=== PATIENT | male | born 1970 | race Caucasian/White ===

== ENCOUNTER 2023-11-17 05:29 | Inpatient (IN) ==
[2023-11-17] MEDS: SODIUM CHLORIDE 0.9% 1,000 ML IV ONE (05:54)
[2023-11-17] MEDS: ONDANSETRON INJ 2 MG/ML 2 ML VIAL IV STA (05:54)
[2023-11-17] MEDS: KETOROLAC 30 MG/ML VIAL IV ONE (05:54)
[2023-11-17 06:16] LABS: Basophils # (auto) 0.05 K/uL (0.00-0.20); Basophils % (auto) 0.5 %; Eosinophils # (auto) 0.29 K/uL (0.00-0.50); Eosinophils % (auto) 3.2 %; Hematocrit (blood only) 43.6 % (42.0-52.0); Hemoglobin 14.8 g/dl (14.0-18.0); Immature Granulocytes # (auto) 0.04 K/uL (0.01-0.20); Immature Granulocytes % (auto) 0.4 %; Lymphocytes # (auto) 2.51 K/uL (1.20-3.40); Lymphocytes % (auto) 27.5 %; Mean Corpuscular Hemoglobin 30.1 pg (25.0-34.0); Mean Corpuscular Hgb Conc 33.9 g/dL (32.0-36.0); Mean Corpuscular Volume 88.8 fL (80.0-100.0); Mean Platelet Volume 9.7 fL (9.4-12.4); Monocytes # (auto) 0.65 K/uL (0.11-0.59); Monocytes % (auto) 7.1 %; Neutrophils # (auto) 5.58 K/uL (1.40-6.50); Neutrophils % (auto) 61.3 %; Platelet Count 255 K/uL (130-400); RDW Coefficient of Variation 11.8 % (11.5-14.5); RDW Standard Deviation 37.3 fL (36.4-46.3); Red Blood Count 4.91 M/uL (4.70-6.10); White Blood Count 9.12 K/ul (4.8-10.8)
[2023-11-17] MEDS: fentaNYL citrate PF 100 MCG/2 ML VIAL IV STA (06:18)
--- NOTE | 2023-11-17 06:31 | Emergency Department Note ---
Impression & Plan Bilateral ureteral calculi, Renal colic on left side, Hydronephrosis, Nausea & vomiting ED Provider Note NAME: CHELITA LARA AGE: 53 SEX: M : 1970 ARRIVES VIA: Walk-In INFORMANT: Patient, triage note ED PROVIDER(S): Dillon Barone MD CHIEF COMPLAINT: Left-sided flank and abdominal pain, nausea vomiting MEDICAL DECISION MAKING: Patient presented due to concern for left-sided flank pain. Pain is improved after receiving Toradol fentanyl and Zofran IV along with IV fluids. Patient has a normal white count H&H and platelet count with normal kidney function prerenal azotemia. Mild elevation in blood glucose at 190. LFTs unremarkable with normal lipase. CT abdomen pelvis was performed without contrast. Left- sided UVJ stone noted. Patient is also noted to have right-sided obstructing kidney stones. Patient was not informed of the findings. I did speak with the on-call urologist MARIO ALBERTO Muller under Dr. Chance. They did discuss taking the patient to the OR for possible stent and/or stone extraction. Patient was taken to the OR. I did message the hospitalist service in conjunction with urology in the event the patient did require admission post procedure. I did touch base with Dr. Parker. Discussion w/ other healthcare providers: MARIO ALBERTO Muller with Dr. Chance urology Dr. [facility] inpatient medicine service Prior /Outside records reviewed: None Differential diagnosis: Renal colic, UTI, pyelonephritis, appendicitis, diverticulitis, strain, sprain, fracture among others were considered. Diagnostics, as interpreted by me: ECG: None Cardiac monitoring: An order was placed for continuous cardiac monitoring. The monitor shows a rate of 52 with sinus rhythm. Patient was placed on pulse oximetry Medical decision rules: None Imaging studies: I informally interpreted the patient's CT abdomen pelvis which does show left- sided UVJ stone with formal report to follow. HPI: Patient presents due to concern for left-sided flank pain when he got up this morning around 5:00. Patient states that it was dull and nonradiating. It does cause him to have associated nausea and dry heaves but no active vomiting. Patient does relate that he had a similar episode about 1 month prior after he was leaving work but it dissipated shortly thereafter. Patient denies any chest pains or shortness of breath no cough or fever. The patient did not take anything for his pain prior to arrival. PAST MEDICAL HISTORY: No pertinent past medical history PAST SURGICAL HISTORY: No pertinent past surgical history SOCIAL HISTORY: Employed. Speaks Welsh. Denies alcohol tobacco or drug use. HOME MEDICATIONS: See Below ALLERGIES: See Below VITALS: See Below PHYSICAL EXAMINATION: GENERAL: NAD, non-toxic. EYE EXAM: Normal conjunctiva. PERRL, no anisocoria and EOM's grossly intact w/o pain. OROPHARYNX: Moist mucus membranes, grossly normal dentition. NECK: Trachea midline, no stridor. LUNGS: Clear to auscultation. Normal chest wall mechanics. HEART: NSR, no MRG. ABDOMEN: Abdomen soft, non-tender, no masses, no rebound or guarding. BACK: No CVA TTP. SKIN: No rashes and no bruising. UPPER EXTREMITIES: Upper extremities are grossly normal. LOWER EXTREMITIES: Grossly normal, no edema. NEURO EXAM: A&O x3, cranial nerves II-XII grossly intact, normal speech, moves all 4 extremities. Past Med/Surg History Problem List (Updated 11/17/23 @ 08:00 by Dillon Barone MD) Nausea & vomiting (Acute) Hydronephrosis (Acute) Renal colic on left side (Acute) Bilateral ureteral calculi (Acute) Social History Smoking Status: Never smoker Preferred Language: Welsh Feels Safe at Home: Yes Results & Data (ED) Vital Signs Vital Signs - 24 hr 11/17/23 05:38 11/17/23 05:40 11/17/23 05:55 Temperature 36.5 C 36.5 C Temperature Source Oral Oral Pulse Rate 70 78 Pulse Rate [Finger] 71 Pulse Rhythm Regular Pulse Rhythm [Finger] Regular Pulse Strength [Finger] Normal Respiratory Rate 16 16 16 Respiratory Effort / Characteristics Non-Labored Non-Labored Spontaneous Respiratory Depth Normal Normal Respiratory Pattern Regular Regular Blood Pressure 163/102 H Blood Pressure [Left Arm] 163/102 H Blood Pressure Mean 122 Blood Pressure Mean [Left Arm] 122 Pulse Oximetry 96 97 97 Oxygen Delivery Method Room Air Room Air Room Air Sepsis Recent Fever Within 48 Hours No Sepsis New/Unexplained Change in Mental Status No Sepsis Action Taken by Nursing No Action Required 11/17/23 06:13 11/17/23 06:46 11/17/23 07:41 Temperature Temperature Source Pulse Rate 47 L Pulse Rate [Finger] 46 L 51 L Pulse Rhythm Pulse Rhythm [Finger] Regular Pulse Strength [Finger] Normal Respiratory Rate 16 18 Respiratory Effort / Characteristics Non-Labored Spontaneous Non-Labored Respiratory Depth Normal Normal Respiratory Pattern Regular Regular Blood Pressure Blood Pressure [Left Arm] 150/96 H 157/108 H Blood Pressure Mean Blood Pressure Mean [Left Arm] 114 124 Pulse Oximetry 96 97 Oxygen Delivery Method Room Air Room Air Sepsis Recent Fever Within 48 Hours Sepsis New/Unexplained Change in Mental Status Sepsis Action Taken by Alf Medications Current Medication List: was personally reviewed by me Laboratory Data Attestation: I reviewed the patient's lab results. 11/17/23 05:50 11/17/23 05:50 Lab Results 11/17/23 Range/Units 05:50 WBC 9.12 (4.8-10.8) K/ul RBC 4.91 (4.70-6.10) M/uL Hgb 14.8 (14.0-18.0) g/dl Hct 43.6 (42.0-52.0) % MCV 88.8 (80.0-100.0) fL MCH 30.1 (25.0-34.0) pg MCHC 33.9 (32.0-36.0) g/dL RDW Std Deviation 37.3 (36.4-46.3) fL RDW Coeff of Fredis 11.8 (11.5-14.5) % Plt Count 255 (130-400) K/uL MPV 9.7 (9.4-12.4) fL Immature Gran % (Auto) 0.4 % Neut % (Auto) 61.3 % Lymph % (Auto) 27.5 % [place] % (Auto) 7.1 % Eos % (Auto) 3.2 % Baso % (Auto) 0.5 % Neut # (Auto) 5.58 (1.40-6.50) K/uL Lymph # (Auto) 2.51 (1.20-3.40) K/uL [place] # (Auto) 0.65 H (0.11-0.59) K/uL Eos # (Auto) 0.29 (0.00-0.50) K/uL Baso # (Auto) 0.05 (0.00-0.20) K/uL Immature Gran # (Auto) 0.04 (0.01-0.20) K/uL Sodium 139 (136-145) mmol/L Potassium 3.7 (3.5-5.1) mmol/L Chloride 107 (98-107) mmol/L Carbon Dioxide 24 (21-32) mmol/L Anion Gap 8 (3-11) BUN 29 H (6-23) mg/dl Creatinine 1.39 (0.6-1.4) mg/dl Est Cr Clr Drug Dosing 73.0 ml/min Est GFR ( Amer) 66.6 ml/min Est GFR (Non-Af Amer) 57.5 ml/min BUN/Creatinine Ratio 20.9 H (10-20) Glucose 190 H (70-99(Fasting)) mg/dl Lactate 1.8 (0.4-2.0) mmol/L Calcium 9.7 (8.6-10.3) mg/dl Total Bilirubin 0.6 (0.2-1.0) mg/dl AST 27 (13-39) U/L ALT 23 (7-52) U/L Alkaline Phosphatase 50 (34-104) U/L Total Protein 7.1 (6.0-8.3) gm/dl Albumin 4.4 (3.4-5.0) gm/dl Globulin 2.7 (2.5-4.0) gm/dl Albumin/Globulin Ratio 1.6 (0.9-2) Lipase 22 (11-82) U/L Administered Medications Discontinued Medications Fentanyl Citrate (Fentanyl Citrate Pf 100 Mcg/2 Ml Vial) 50 mcg IV NOW STA Stop: 11/17/23 06:11 Last Admin: 11/17/23 06:18 Dose: 50 mcg Documented By: SUDHA Sodium Chloride (Nss) 1,000 mls @ 999 mls/hr IV .Q1H1M ONE Stop: 11/17/23 06:41 Last Infusion: 11/17/23 07:52 Dose: Infused Documented By: Admin: 11/17/23 05:54 Dose: 999 mls/hr Documented By: SUDHA Ketorolac Tromethamine (Ketorolac 30 Mg/Ml Vial) 30 mg IV NOW ONE Stop: 11/17/23 05:42 Last Admin: 11/17/23 05:54 Dose: 30 mg Documented By: SUDHA Ondansetron HCl (Ondansetron Inj 2 Mg/Ml 2 Ml Vial) 4 mg IV NOW STA Stop: 11/17/23 05:42 Last Admin: 11/17/23 05:54 Dose: 4 mg Documented By: SUDHA Imaging Data Radiologist's Impression: Abdomen/Pelvis CT 11/17/23 05:30 CT SCAN OF THE ABDOMEN AND PELVIS WITHOUT IV CONTRAST CLINICAL HISTORY: Left flank pain COMPARISON STUDY: No priors. TECHNIQUE: CT scan of the abdomen and pelvis is performed from the lung bases to the proximal femora. Images are reviewed in the axial, sagittal, and coronal planes. IV contrast was not administered for this examination. A dose lowering technique was utilized adhering to the principles of ALARA. CT DOSE: 1514.43 mGy.cm FINDINGS: Lung bases: The heart is top normal in size and without pericardial effusion. The lung bases are clear noting dependent atelectasis. There is a small hiatal hernia. Liver: The unenhanced liver is normal in size, contour, and attenuation. There is no intrahepatic biliary ductal dilatation. Gallbladder: Unremarkable. Spleen: Normal in size and attenuation. Pancreas: Unremarkable. Adrenal glands: Unremarkable. Kidneys: The unenhanced kidneys are normal in size. There is a 3 mm obstructing calculus at the left vesicoureteral junction seen on image #324. This causes mild left hydroureteronephrosis. There is a 4 mm obstructing calculus just above the right vesicoureteral junction seen on image #322, as well as a 4 mm obstructing calculus at the right ureteropelvic junction seen on image #168. This causes [id number] hydronephrosis on the right. There are 2 additional nonobstructing right renal calculi which measure up to 3 mm. An additional 5 mm nonobstructing calculus is seen in the left lower pole. There is no evidence of contour deforming renal mass lesion. Perinephric stranding is seen on the left. Abdominal vasculature: The abdominal aorta is normal in course and caliber. Bowel: There is no bowel obstruction. The appendix is well-visualized and normal. Peritoneum: There is no intraperitoneal free air or abdominal ascites. There is a fat-containing umbilical hernia. Lymphadenopathy: None. Pelvic viscera: The bladder, prostate, and seminal vesicles are normal as visualized. Skeletal structures: No lytic or blastic lesions are seen. IMPRESSION: 1. There is a 3 mm obstructing calculus at the left vesicoureteral junction. This causes mild left hydroureteronephrosis. 2. There is a 4 mm obstructing calculus just above the right vesicoureteral junction and a 4 mm obstructing calculus at the right ureteropelvic junction. These because [id number] hydronephrosis on the right. 3. Additional nonobstructing calculi are seen in both kidneys. 4. Additional findings as above. ACT 112: Negative or not required by law. Electronically signed by: Cody Swanson M.D. 11/17/2023 6:52 AM Discharge Plan Visit Data Chief Complaint: Kidney Stone ED Provider: Dillon Barone Discharge Problem: Bilateral ureteral calculi, Renal colic on left side, Hydronephrosis, Nausea & vomiting Forms Stand Alone Forms: [facility] Referrals Referrals: PCP,NO [Primary Care Provider] - Discharge Problem: Hydronephrosis Qualifiers: Hydronephrosis type: with ureteral calculous obstruction Qualified Code(s): N 13.2 - Hydronephrosis with renal and ureteral calculous obstruction Nausea & vomiting Qualifiers: Vomiting type: unspecified Qualified Code(s): R11.2 - Nausea with vomiting, unspecified
[2023-11-17 06:36] LABS: Albumin Globulin Ratio 1.6 (0.9-2); Albumin Level 4.4 gm/dl (3.4-5.0); BUN Creatinine Ratio 20.9 (10-20); Bilirubin,Total 0.6 mg/dl (0.2-1.0); Calcium 9.7 mg/dl (8.6-10.3); Est GFR (African American) 66.6 ml/min; Est GFR (Non-African American) 57.5 ml/min; Globulin 2.7 gm/dl (2.5-4.0); Potassium 3.7 mmol/L (3.5-5.1); Total Protein 7.1 gm/dl (6.0-8.3)
--- NOTE | 2023-11-17 06:54 | CT Scan Report ---
CT SCAN OF THE ABDOMEN AND PELVIS WITHOUT IV CONTRAST CLINICAL HISTORY: Left flank pain COMPARISON STUDY: No priors. TECHNIQUE: CT scan of the abdomen and pelvis is performed from the lung bases to the proximal femora. Images are reviewed in the axial, sagittal, and coronal planes. IV contrast was not administered for this examination. A dose lowering technique was utilized adhering to the principles of ALARA. CT DOSE: 1514.43 mGy.cm FINDINGS: Lung bases: The heart is top normal in size and without pericardial effusion. The lung bases are rajeev r noting dependent atelectasis. There is a small hiatal hernia. Liver: The unenhanced liver is normal in size, contour, and attenuation. There is no intrahepatic mauricio iary ductal dilatation. Gallbladder: Unremarkable. Spleen: Normal in size and attenuation. Pancreas: Unremarkable. Adrenal glands: Unremarkable. Kidneys: The unenhanced kidneys are normal in size. There is a 3 mm obstructing calculus at the left vesicoureteral junction seen on image #324. This causes mild left hydroureteronephrosis. There is a 4 mm obstructing calculus just above the right vesicoureteral junction seen on image #322, as well as a 4 mm obstructing calculus at the right ureteropelvic junction seen on image #168. This causes mild- to-moderate hydronephrosis on the right. There are 2 additional nonobstructing right renal calculi wh ich measure up to 3 mm. An additional 5 mm nonobstructing calculus is seen in the left lower pole. Th ere is no evidence of contour deforming renal mass lesion. Perinephric stranding is seen on the left. Abdominal vasculature: The abdominal aorta is normal in course and caliber. Bowel: There is no bowel obstruction. The appendix is well-visualized and normal. Peritoneum: There is no intraperitoneal free air or abdominal ascites. There is a fat-containing umbi lical hernia. Lymphadenopathy: None. Pelvic viscera: The bladder, prostate, and seminal vesicles are normal as visualized. Skeletal structures: No lytic or blastic lesions are seen. IMPRESSION: 1. There is a 3 mm obstructing calculus at the left vesicoureteral junction. This causes mild left hy droureteronephrosis. 2. There is a 4 mm obstructing calculus just above the right vesicoureteral junction and a 4 mm obstr ucting calculus at the right ureteropelvic junction. These because [id number] hydronephrosis on the right. 3. Additional nonobstructing calculi are seen in both kidneys. 4. Additional findings as above. ACT 112: Negative or not required by law. Electronically signed by: Cody Swanson M.D. 11/17/2023 6:52 AM
--- NOTE | 2023-11-17 07:39 | Urology Consultation ---
Date of Consultation November 17, 2023 Assessment & Plan (1) Bilateral ureteral calculi: 53 yo/M presented to the emergency department today for evaluation of left flank pain. CT imaging demonstrated bilateral obstructing ureteral stones. Patient is afebrile Labs reviewedcreatinine 1.39, WBC 9.12, hemoglobin 14.8 He has not been able to provide urine sample since arrival CT imaging reviewed and discussed with patient Discussed risks and concerns with bilateral obstructing ureteral stones Discussed surgical intervention with ureteral stent placement today, he is agreeable Ureteral stents were discussed in detail Proceed to OR today for cystoscopy and bilateral ureteral stent placement Risks and benefits of procedure to be reviewed with patient by Dr. Chance Keep NPO for procedure Will cover with preoperative antibiotic See attending note for further details on plan of care Supervising Physician Co-Signing Physician Notes Reviewed imaging and spoke with patient. Recommended bilateral stents given bilateral obstruction. Recommended that we observe him for postobstructive diuresis afterwards. Risk and benefits discussed. Consent signed. Ancef to the OR. History of Present Illness Reason for Consultation: B/L obstructing stones Requesting Physician: Dr. Barone History of Present Illness This is a 53-year-old male who presented to the emergency department today for evaluation of left flank pain, nausea and dry heaves. On arrival, he was afebrile, hypertensive but otherwise stable vitals. Workup in the emergency department included CT abdomen and pelvis without contrast. CT imaging independently reviewed and notable for a 3 mm obstructing calculus at the left UVJ with mild left hydroureteronephrosis. There is also a 4 mm obstructing calculus just above the right UVJ and a 4 mm obstructing calculus at the right UPJ with resulting mild to moderate hydronephrosis. Additional nonobstructing bilateral renal calculi. Lab work reviewed and creatinine 1.39, WBC 9.12, hemoglobin 14.8. No urinalysis at time of visit. He was treated with IV fluids, fentanyl, ondansetron and ketorolac in the emergency department. Patient seen and examined in the emergency department. He is awake and resting in litter. He reports history of kidney stone 20+ years ago. No prior surgical intervention for stones. He reports left flank pain that started suddenly this morning as well as nausea and dry heaves. Pain improved since arrival. No nausea or vomiting at present. He voided earlier this morning. Denies dysuria or hematuria. Has not voided since arrival. Last ate/drank yesterday evening. Patient History Social History Smoking Status: Never smoker Preferred Language: Filipino Feels Safe at Home: Yes Review of Systems Review of Systems: All systems reviewed & are unremarkable except as noted in HPI & below Physical Exam Constitutional: well developed and well nourished; no acute distress Eyes: no scleral abnormality Respiratory: normal respiratory effort; no respiratory distress and no labored breathing Gastrointestinal (Abdomen): Inspection/Auscultation: abdomen normal to inspection Musculoskeletal: Head/Neck/Chest: normocephalic Neurologic: moves all extremities and awake Psychiatric: Orientation: alert and oriented x 3 Genitourinary: no CVA tenderness Results & Data Vital Signs (Past 12 Hours) Vital Signs Temp Pulse Pulse Resp BP BP Pulse Ox 11/17/23 06:46 46 L 16 150/96 H 96 11/17/23 06:13 47 L 11/17/23 05:55 78 16 97 11/17/23 05:40 36.5 C 71 16 163/102 H 97 11/17/23 05:38 36.5 C 70 16 163/102 H 96 O2 Del Method 11/17/23 06:46 Room Air 11/17/23 06:13 11/17/23 05:55 Room Air 11/17/23 05:40 Room Air 11/17/23 05:38 Room Air PG Care Time/CCT Total # of Minutes Spent Total Time Spent with Patient: Total time spent is greater than 50% in coordination of care (as documented) at patient's floor/unit and/or counseling patient: Coding Level of Care Code 22681 IN/OBS CONSULT LVL 4,60M Diagnoses Bilateral ureteral calculi N20.1
[2023-11-17] MEDS ORDERED: PROPOFOL IV EMULSION 10 MG/ML 20 ML VIAL IV ONE ×3 (08:27→08:56)
[2023-11-17] MEDS ORDERED: LIDOCAINE 2% 2 ML VIAL/AMP(20MG/ML) INFIL ONE (08:27)
[2023-11-17] MEDS ORDERED: DEXAMETHASONE SOD INJ 4 MG/ML VIAL ONE ×2 (08:27→08:59)
[2023-11-17] MEDS ORDERED: MIDAZOLAM HCL 1 MG/ML 2ML VIAL ONE (08:28)
[2023-11-17] MEDS ORDERED: fentaNYL citrate PF 100 MCG/2 ML VIAL ONE (08:28)
[2023-11-17] MEDS: ceFAZolin 3000MG 3,000 MG/72.5 ML BAG IV SCH (08:41)
--- NOTE | 2023-11-17 08:41 | Anesthesiology Consultation ---
Date of Service November 17, 2023 Assessment & Plan Chart Review Chart Review: Acceptable Risk for Surgery and Patient NOT seen in Pre Admission Testing Consults Requested none ASA ASA2 Proposed Anesthesia Anesthesia Type: MAC Risk / Benefits Reviewed With: PT / POA / Parent / Guardian, Accepts Plan and Informed Consent Obtained History Surgery Operation Date: 11/17/23 11:20 Proposed Procedures p Cystoscopy, Bilateral Stent Placement - Hari Chance MD Height/Weight Height: 5 ft 7 in Weight: 110.8 kg Allergies Allergy/AdvReac Type Severity Reaction Status Date / Time No Known Allergies Allergy Unverified 11/17/23 08:27 NPO Date Last Intake of Fluids: 11/16/23 Time Last Intake of Fluids: 19:30 Date Last Intake of Solids: 11/16/23 Time Last Intake of Solids: 19:30 Past Anesthesia History No Hx of Anesthesia Complications and No Family Hx of Anesthesia Complications History of PONV No Hx of PONV and No Hx of Motion Sickness Social History Smoking Status: Never smoker Hx Alcohol Use: No Hx Substance Use: No Review of Systems ROS Unobtainable: All systems reviewed & are unremarkable except as noted in HPI & below Physical Exam Vital Signs Last Vital Signs Temp 36.3 C L 11/17/23 08:19 Pulse 77 11/17/23 08:19 Resp 18 11/17/23 08:19 BP 161/100 H 11/17/23 08:19 Pulse Ox 97 11/17/23 08:19 O2 Del Method Room Air 11/17/23 08:19 ENMT Mouth: no TMJ abnormality Thyromental Distance: > or= 3.5 Finger Breadths Mallampati Class: II Neck normal visual inspection and trachea midline; neck extension not limited Respiratory normal respiratory effort Auscultation: lungs clear to auscultation bilaterally Cardiovascular Rate/Rhythm: regular rate and regular rhythm Heart Sounds: no murmur Musculoskeletal Spine: normal cervical ROM Extremities: full ROM of extremities Neurologic moves all extremities Psychiatric Orientation: alert and oriented x 3 Testing Laboratory Results 11/17/23 05:50 11/17/23 05:50
[2023-11-17] MEDS ORDERED: ATROPINE SULFATE 0.1 MG/ML 10ML SYR IV PRN (08:42)
[2023-11-17] MEDS ORDERED: fentaNYL citrate PF 100 MCG/2 ML VIAL IV PRN (08:42)
[2023-11-17] MEDS ORDERED: ePHEDrine sulfate 50 MG/ML AMP IV PRN (08:42)
[2023-11-17] MEDS ORDERED: ONDANSETRON INJ 2 MG/ML 2 ML VIAL IV PRN ×2 (08:42→11:55)
[2023-11-17 08:43] LABS: Appearance Urine Clear (Clear); Bilirubin Urine Negative (Negative); Blood Urine Negative (Negative); Color Urine Yellow; Glucose Urine UA Negative (Negative); Ketones Urine Negative (Negative); Leukocyte Esterase Urine Negative (Negative); Nitrite Urine Negative (Negative); Protein Urine Negative (Negative); Specific Gravity Urine 1.025 (1.000-1.030); Urobilinogen Urine Negative (Negative); pH Urine 5.5 (4.5-7.5)
[2023-11-17] MEDS: ceFAZolin 3000MG/72.5 ML BAG IV ONE (08:58)
[2023-11-17] MEDS ORDERED: HYDROmorphone INJ 2 MG/ML SYR/VIAL ONE (09:01)
[2023-11-17] MEDS: DIATRIZOATE MEGLUMINE 30% 100ML VIAL INSTIL ONE (09:05)
--- NOTE | 2023-11-17 09:06 | Operative Report ---
PG Post Operative Report Pre & Post Diagnosis Operation Date: 11/17/23 11:20 Pre-Op Diagnosis: Bilateral ureteral calculi Post-Op Diagnosis: Bilateral ureteral calculi I identified the patient and participated in the time-out.: Yes Procedure Operation Date: 11/17/23 11:20 Actual Procedures p Cystoscopy, Retograde Pyelogram with radiographic interpretation, Bilateral Ureteral Stent Placement(Bilateral) - Hari Chance MD Surgeon Hari Chance MD Chargeback Analyst None Estimated Blood Loss 5 Findings See Below Bilateral moderate hydro. Ureteral orifice ease very close to the bladder neck at the midline. Specimens None Drains Bilateral 6 Armenian by 26 cm ureteral stents Anesthesia Type MAC Complications none Indications 53-year-old male with bilateral obstructing ureteral calculi Description of Procedure After informed consent was obtained, the patient was transported operative suite. MAC anesthesia was induced. The patient was placed in dorsolithotomy position prepped and draped in a sterile fashion. They received preoperative Ancef for antibiotic prophylaxis. An appropriate surgical timeout was performed. A 22 Armenian rigid scope was inserted per urethra into the bladder. Schulz cystoscopy revealed no stones or lesions. I turned my attention the right ureteral orifice and intubated this with a 5 Armenian open-ended catheter. A right retrograde pyelogram was shot which showed moderate hydronephrosis. A sensor wire was advanced into the kidney and confirmed fluoroscopically. A 6 Armenian by 26 cm right ureteral stent was deployed with a good proximal coil in the renal pelvis and a good distal coil noted in the bladder, confirmed fluoroscopically and under direct visualization, respectively. I turned my attention the left ureteral orifice and intubated this with a 5 Armenian open-ended catheter. A left retrograde pyelogram was shot which showed moderate left-sided. A sensor wire was advanced into the kidney and confirmed fluoroscopically. A 6 Armenian by 26 cm left ureteral stent was deployed with a good proximal coil in the renal pelvis and a good distal coil noted in the bladder. These were confirmed fluoroscopically and under direct visualization, respectively. The bladder was emptied and the scope was removed. This concluded the end of the case. All counts were correct at the end of the case. I was present, scrubbed, and actively participated for the entirety of the procedure. I attest to the content of the Intraoperative Record and any orders documented therein. Any exceptions are noted below.
--- NOTE | 2023-11-17 09:26 | Fluoroscopy Report ---
FL retrograde includes kub CLINICAL HISTORY: BILATERAL STENTS TECHNIQUE: 4 views were obtained with the C-arm in the OR with the above procedure. Total fluoroscopy time was 16.9 seconds. Radiation dose was 7.87 mGy. Comparison: Comparison is made to CT abdomen pelvis 11/17/2023 FINDINGS/IMPRESSION: Intraoperative images were obtained of bilateral retrograde pyelogram and stent placement. In the final images, the stent is in satisfactory position. Please correlate with intraoperative fluoroscopy and operative report. ACT 112: Negative or not required by law. Electronically signed by: Manfred Lopez M.D. 11/17/2023 9:24 AM
--- NOTE | 2023-11-17 11:42 | History & Physical Report ---
Date of Service November 17, 2023 Assessment & Plan (1) Bilateral ureteral calculi: (2) Hydronephrosis: Plan This is a 53-year-old male who has prior history of nephrolithiasis who presents to ED secondary to acute onset left-sided flank pain that began when he awoke this morning. B/L ureteral calculi Obstructive Uropathy admit to medical --CT a/p: There is a 3 mm obstructing calculus at the left vesicoureteral junction. This causes mild left hydroureteronephrosis. 2. There is a 4 mm obstructing calculus just above the right vesicoureteral junction and a 4 mm obstructing calculus at the right ureteropelvic junction. These because [id number] hydronephrosis on the right. S/P Cystoscopy with b/l ureteral stent placement by Dr. Chance received perioperative antibiotics, urine negative, afebrile prn analgesia and antiemetics flomax, prn pyridium observe overnight and likely discharge in a.m. DVT ppx: encourage ambulation Dispo: admit to med/surg likely d/c in a.m. FULL CODE PCP: DERRICK Doll, pt unsure of name pt was seen and examined in collaboration with Dr. Schofield, please see addendum A total of 55 minutes was spent coordinating, documenting, and providing care for this patient excluding time spent in the performance of separately billed services. This included personally viewing all current laboratories and imaging studies, medication reconciliation, outpatient chart review, and discussion with specialists. 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 Symptoms started approximately 5:00. Pain was located in the left flank, described as dull and nonradiating. It was associated with nausea, dry heaves and diaphoresis. He does have a prior history approximately 25 years ago of a kidney stone. He denies any hematuria, dysuria, Increased urgency or frequency, fever, chills, chest pain, shortness of breath or URI symptoms. He was on his way to work when symptoms became abruptly worse and therefore presented to ED. In ED CT abdomen pelvis revealed a 3 mm obstructing calculus at the left vesicular ureteral junction with mild left hydroureteronephrosis and a 4 mm obstructing calculus just above the right vesicular ureteral junction and a 4 mm obstructing calculus at the right ureteropelvic junction. He was seen and evaluated by urology and due to obstructive uropathy underwent cystoscopy with bilateral ureteral stent placement by Dr. Chance. He tolerated the procedure well and was seen and evaluated in PACU. He is hemodynamically stable postoperatively and will be admitted to [facility] for postoperative monitoring Allergies Allergy/AdvReac Type Severity Reaction Status Date / Time No Known Allergies Allergy Unverified 11/17/23 11:59 Home Medications Medication Instructions Recorded Confirmed Type No Known Home Medications 11/17/23 11/17/23 History Past Med/Surg History Problem List Nausea & vomiting (Acute) Hydronephrosis (Acute) Renal colic on left side (Acute) Bilateral ureteral calculi (Acute) Medical History History of nephrolithiasis Surgical History Hx of cystoscopy 11/17/23 with b/l stent placement Family History Other No pertinent family history Social History Smoking Status: Never smoker Hx Alcohol Use: No Hx Substance Use: No Preferred Language: Kyrgyz Communication Ability: Effective Telecommunications Repairer Required: No Beliefs That Will Affect Care: None Current Living Situation: Alone Other Information That Helps Us Care for You: No Feels Safe at Home: Yes Safety Concerns: Feels Safe At This Time Assistive Devices: Denture - Upper Review of Systems Review of Systems: All systems reviewed & are unremarkable except as noted in HPI & below Physical Exam Physical Exam: please refer to Dr. Schofield addendum for physical exam findings. Results & Data Results & Data Vital Signs (Past 12 Hours) Vital Signs Temp Pulse Pulse Pulse Resp BP BP 11/17/23 11:30 50 L 12 129/61 11/17/23 11:15 46 L 12 122/86 11/17/23 11:00 48 L 16 133/91 11/17/23 10:45 78 16 116/96 11/17/23 10:30 58 L 18 125/84 11/17/23 10:20 75 18 144/82 H 11/17/23 10:10 48 L 13 136/96 11/17/23 10:00 72 15 127/90 11/17/23 09:50 63 12 116/71 11/17/23 09:40 79 19 127/79 11/17/23 09:30 65 16 109/68 11/17/23 09:20 71 12 124/69 11/17/23 09:13 36.0 C L 70 12 113/75 11/17/23 08:19 36.3 C L 77 18 161/100 H 11/17/23 07:41 51 L 18 157/108 H 11/17/23 06:46 46 L 16 150/96 H 11/17/23 06:13 47 L 11/17/23 05:55 78 16 11/17/23 05:40 36.5 C 71 16 163/102 H 11/17/23 05:38 36.5 C 70 16 163/102 H Pulse Ox O2 Del Method O2 Flow Rate 11/17/23 11:30 96 Room Air 0 11/17/23 11:15 95 Room Air 0 11/17/23 11:00 97 Room Air 0 11/17/23 10:45 93 Room Air 0 11/17/23 10:30 94 Room Air 0 11/17/23 10:20 95 Room Air 0 11/17/23 10:10 95 Room Air 0 11/17/23 10:00 96 Room Air 0 11/17/23 09:50 93 Room Air 0 11/17/23 09:40 98 Room Air 0 11/17/23 09:30 94 Oxymask 4 11/17/23 09:20 95 Oxymask 6 11/17/23 09:13 95 Oxymask 6 11/17/23 08:19 97 Room Air 11/17/23 07:41 97 Room Air 11/17/23 06:46 96 Room Air 11/17/23 06:13 11/17/23 05:55 97 Room Air 11/17/23 05:40 97 Room Air 11/17/23 05:38 96 Room Air Diagnostic Findings Retrograde Pyelogram 11/17/23 00:00 FL retrograde includes kub CLINICAL HISTORY: BILATERAL STENTS TECHNIQUE: 4 views were obtained with the C-arm in the OR with the above procedure. Total fluoroscopy time was 16.9 seconds. Radiation dose was 7.87 mGy. Comparison: Comparison is made to CT abdomen pelvis 11/17/2023 FINDINGS/IMPRESSION: Intraoperative images were obtained of bilateral retrograde pyelogram and stent placement. In the final images, the stent is in satisfactory position. Please correlate with intraoperative fluoroscopy and operative report. ACT 112: Negative or not required by law. Electronically signed by: Manfred Lopez M.D. 11/17/2023 9:24 AM Abdomen/Pelvis CT 11/17/23 05:30 CT SCAN OF THE ABDOMEN AND PELVIS WITHOUT IV CONTRAST CLINICAL HISTORY: Left flank pain COMPARISON STUDY: No priors. TECHNIQUE: CT scan of the abdomen and pelvis is performed from the lung bases to the proximal femora. Images are reviewed in the axial, sagittal, and coronal planes. IV contrast was not administered for this examination. A dose lowering technique was utilized adhering to the principles of ALARA. CT DOSE: 1514.43 mGy.cm FINDINGS: Lung bases: The heart is top normal in size and without pericardial effusion. The lung bases are clear noting dependent atelectasis. There is a small hiatal hernia. Liver: The unenhanced liver is normal in size, contour, and attenuation. There is no intrahepatic biliary ductal dilatation. Gallbladder: Unremarkable. Spleen: Normal in size and attenuation. Pancreas: Unremarkable. Adrenal glands: Unremarkable. Kidneys: The unenhanced kidneys are normal in size. There is a 3 mm obstructing calculus at the left vesicoureteral junction seen on image #324. This causes mild left hydroureteronephrosis. There is a 4 mm obstructing calculus just above the right vesicoureteral junction seen on image #322, as well as a 4 mm obstructing calculus at the right ureteropelvic junction seen on image #168. This causes [id number] hydronephrosis on the right. There are 2 additional nonobstructing right renal calculi which measure up to 3 mm. An additional 5 mm nonobstructing calculus is seen in the left lower pole. There is no evidence of contour deforming renal mass lesion. Perinephric stranding is seen on the left. Abdominal vasculature: The abdominal aorta is normal in course and caliber. Bowel: There is no bowel obstruction. The appendix is well-visualized and normal. Peritoneum: There is no intraperitoneal free air or abdominal ascites. There is a fat-containing umbilical hernia. Lymphadenopathy: None. Pelvic viscera: The bladder, prostate, and seminal vesicles are normal as visualized. Skeletal structures: No lytic or blastic lesions are seen. IMPRESSION: 1. There is a 3 mm obstructing calculus at the left vesicoureteral junction. T his causes mild left hydroureteronephrosis. 2. There is a 4 mm obstructing calculus just above the right vesicoureteral junction and a 4 mm obstructing calculus at the right ureteropelvic junction. These because dyvq-fr-[id number] hydronephrosis on the right. 3. Additional nonobstructing calculi are seen in both kidneys. 4. Additional findings as above. ACT 112: Negative or not required by law. Electronically signed by: Cody Swanson M.D. 11/17/2023 6:52 AM Medications Administered Medication List Discontinued Medications Cefazolin Sodium (Cefazolin 3000mg/72.5 Ml Bag) Confirm Administered Dose 3,000 mg IV .STK-MED ONE Stop: 11/17/23 08:07 Last Admin: 11/17/23 08:58 Dose: Not Given Documented By: VELASQUEZ Diatrizoate Meglumine (Diatrizoate Meglumine 30% 100ml Vial) 20 ml INSTIL UD ONE Stop: 11/17/23 09:05 Last Admin: 11/17/23 09:05 Dose: 20 ml Documented By: [id number] Fentanyl Citrate (Fentanyl Citrate Pf 100 Mcg/2 Ml Vial) 50 mcg IV NOW STA Stop: 11/17/23 06:11 Last Admin: 11/17/23 06:18 Dose: 50 mcg Documented By: SUDHA Sodium Chloride (Nss) 1,000 mls @ 999 mls/hr IV .Q1H1M ONE Stop: 11/17/23 06:41 Last Infusion: 11/17/23 07:52 Dose: Infused Documented By: Admin: 11/17/23 05:54 Dose: 999 mls/hr Documented By: SUDHA Cefazolin Sodium (Ancef 3000mg) 3,000 mg in 72.5 mls @ 130 mls/hr IV PREOP REAL; Protocol Stop: 11/19/23 05:59 Last Admin: 11/17/23 08:41 Dose: 130 mls/hr Documented By: [id number] Ketorolac Tromethamine (Ketorolac 30 Mg/Ml Vial) 30 mg IV NOW ONE Stop: 11/17/23 05:42 Last Admin: 11/17/23 05:54 Dose: 30 mg Documented By: SUDHA Ondansetron HCl (Ondansetron Inj 2 Mg/Ml 2 Ml Vial) 4 mg IV NOW STA Stop: 11/17/23 05:42 Last Admin: 11/17/23 05:54 Dose: 4 mg Documented By: SUDHA COVID-19 Results Results COVID-19 Adm Lab Results: RBC 4.91 M/uL (4.70-6.10) 11/17/23 WBC 9.12 K/ul (4.8-10.8) 11/17/23 Hgb 14.8 g/dl (14.0-18.0) 11/17/23 Hct 43.6 % (42.0-52.0) 11/17/23 Plt Count 255 K/uL (130-400) 11/17/23 Neutrophils (%) (Auto) 61.3 % 11/17/23 Lymphocytes (%) (Auto) 27.5 % 11/17/23 Monocytes # (Auto) 0.65 K/uL (0.11-0.59) H 11/17/23 Eosinophils # (Auto) 0.29 K/uL (0.00-0.50) 11/17/23 Immature Granulocyte % (Auto) 0.4 % 11/17/23 Neutrophils # (Auto) 5.58 K/uL (1.40-6.50) 11/17/23 Lymphocytes # (Auto) 2.51 K/uL (1.20-3.40) 11/17/23 Monocytes # (Auto) 0.65 K/uL (0.11-0.59) H 11/17/23 Eosinophils # (Auto) 0.29 K/uL (0.00-0.50) 11/17/23 Basophils # (Auto) 0.05 K/uL (0.00-0.20) 11/17/23 Immature Granulocyte # (Auto) 0.04 K/uL (0.01-0.20) 4 Na 139 mmol/L (136-145) 11/17/23 K 3.7 mmol/L (3.5-5.1) 11/17/23 Cl 107 mmol/L (98-107) 11/17/23 CO2 24 mmol/L (21-32) 11/17/23 Anion Gap 8 (3-11) 11/17/23 BUN 29 mg/dl (6-23) H 11/17/23 Creatinine 1.39 mg/dl (0.6-1.4) 11/17/23 BUN/Creatinine Ratio 20.9 (10-20) H 11/17/23 Glucose Level 190 mg/dl (70-99(Fasting)) H 11/17/23 Ca 9.7 mg/dl (8.6-10.3) 11/17/23 Total Bilirubin 0.6 mg/dl (0.2-1.0) 11/17/23 AST/SGOT 27 U/L (13-39) 11/17/23 ALT/SGPT 23 U/L (7-52) 11/17/23 Alkaline Phosphatase 50 U/L (34-104) 11/17/23 Total Protein 7.1 gm/dl (6.0-8.3) 11/17/23 Albumin 4.4 gm/dl (3.4-5.0) 11/17/23 Globulin 2.7 gm/dl (2.5-4.0) 11/17/23 Albumin/Globulin Ratio 1.6 (0.9-2) 11/17/23 Code Status & VTE Plan Code Status FULL CODE VTE Prophylaxis Plan VTE Prophylaxis will be ordered: Yes Supervising Physician Co-Signing Physician Notes Patient is a 53-year-old male with no significant past medical history presents with history of left flank pain since this morning. Reports associated nausea and diaphoresis. Denies any fever, chills, chest pain, dyspnea, dizziness, dysuria, hematuria. Please review HPI for complete details of presentation. I personally reviewed blood work and imaging studies. CT abdomen showed 3 mm obstructing calculus of the left UV junction with mild left hydrouretero nephrosis. Also noted 4 mm obstructing calculus above the right vesicoureteral junction and a 4 mm obstructing calculus of the right UV junction. Also noted right mild to moderate hydronephrosis on the right kidney. Patient had bilateral ureteral stent placement by Dr. Chance. After the ureteral stent placement, symptoms resolved and currently patient had no flank pain. Physical Exam: Vitals signs as noted above General Appearance:Moderately built and nourished, no apparent distress Head: normocephalic, Atraumatic Eyes: normal inspection, EOMI Neck: supple, Trachea midline Respiratory/Chest: Normal breath sounds, CTA, No accessory muscle use Cardiovascular: S1, S2, No murmur Abdomen/GI:Soft, Non tender, Bowel sounds present Extremities/Musculoskeletal:normal inspection, no edema Neurologic/Psych:AAOX3, grossly no focal neurological deficits Skin: normal color, warm Bilateral ureteral calculus Obstructive uropathy Renal colic S/P bilateral ureteral stent placement Continue IV fluids, Flomax Pyridium as needed UA not suggestive of UTI Appreciate urology input Strain all urine Likely discharge in next 24 to 48 hours if remains stable Hyperglycemia Incidental finding Check HbA1c Elevated blood pressure Likely situational secondary to pain No known history of hypertension Monitor BP I personally interviewed and examined at bedside. Patient's care is coordinated with Roya Bueno PA-C. I have reviewed the advanced practitioner's documentation, and I agree with plan of care. Please refer to the documentation above for details of patient's presentation and for discussion of other issues. I spent a total of39 minutes coordinating, documenting, and providing care for this patient excluding time spent in the performance of separately billed services. (2) Hydronephrosis Hydronephrosis type: with ureteral calculous obstruction Qualified Code(s): N13.2 - Hydronephrosis with renal and ureteral calculous obstruction
[2023-11-17] MEDS ORDERED: POLYETHYLENE (MIRALAX) 17 GM PACK PO PRN (11:55)
[2023-11-17] MEDS ORDERED: ALUMINUM/MAGNESIUM SUSP 30 ML UDC PO PRN (11:55)
[2023-11-17] MEDS ORDERED: ACETAMINOPHEN 325 MG TAB PO PRN (11:55)
[2023-11-17] MEDS ORDERED: PHENAZOPYRIDINE HCL 100 MG TAB PO PRN (11:55)
[2023-11-17] MEDS ORDERED: MoRPHine SULFATE 2 MG/ML CARP IV PRN (11:55)
[2023-11-17] MEDS ORDERED: MAGNESIUM HYDROXIDE SUSP 30 ML UDC PO PRN (11:55)
--- NOTE | 2023-11-17 12:10 | Anesthesiology Progress Note ---
Date of Service November 17, 2023 Anesthesia Post Procedure Vital Signs Vital Signs: Temp Pulse Pulse Pulse Resp BP BP 11/17/23 12:00 48 L 13 149/73 H 11/17/23 11:30 50 L 12 129/61 11/17/23 11:15 46 L 12 122/86 11/17/23 11:00 48 L 16 133/91 11/17/23 10:45 78 16 116/96 11/17/23 10:30 58 L 18 125/84 11/17/23 10:20 75 18 144/82 H 11/17/23 10:10 48 L 13 136/96 11/17/23 10:00 72 15 127/90 11/17/23 09:50 63 12 116/71 11/17/23 09:40 79 19 127/79 11/17/23 09:30 65 16 109/68 11/17/23 09:20 71 12 124/69 11/17/23 09:13 36.0 C L 70 12 113/75 11/17/23 08:19 36.3 C L 77 18 161/100 H 11/17/23 07:41 51 L 18 157/108 H 11/17/23 06:46 46 L 16 150/96 H 11/17/23 06:13 47 L 11/17/23 05:55 78 16 11/17/23 05:40 36.5 C 71 16 163/102 H 11/17/23 05:38 36.5 C 70 16 163/102 H Pulse Ox O2 Del Method O2 Flow Rate 11/17/23 12:00 94 Room Air 0 11/17/23 11:30 96 Room Air 0 11/17/23 11:15 95 Room Air 0 11/17/23 11:00 97 Room Air 0 11/17/23 10:45 93 Room Air 0 11/17/23 10:30 94 Room Air 0 11/17/23 10:20 95 Room Air 0 11/17/23 10:10 95 Room Air 0 11/17/23 10:00 96 Room Air 0 11/17/23 09:50 93 Room Air 0 11/17/23 09:40 98 Room Air 0 11/17/23 09:30 94 Oxymask 4 11/17/23 09:20 95 Oxymask 6 11/17/23 09:13 95 Oxymask 6 11/17/23 08:19 97 Room Air 11/17/23 07:41 97 Room Air 11/17/23 06:46 96 Room Air 11/17/23 06:13 11/17/23 05:55 97 Room Air 11/17/23 05:40 97 Room Air 11/17/23 05:38 96 Room Air Pain Intensity Left Flank: Pain Intensity: 6 Transfer of Care Handoff Completed per policy Notes Mental Status: alert / awake / arousable Patient Amnestic to Procedure: Yes Nausea / Vomiting: adequately controlled Pain: adequately controlled Airway Patency, RR, SpO2: stable & adequate BP & HR: stable & adequate Hydration State: stable & adequate Anesthetic Complications: no major complications apparent and Pt Satisfied with anesthetic care
[2023-11-17] MEDS: ceFAZolin 3000MG 3,000 MG/72.5 ML BAG IV ONE (13:15)
[2023-11-17] MEDS: LACTATED RINGER'S 1,000 ML IV SCH (13:38)
[2023-11-17] MEDS: TAMSULOSIN HCL 0.4 MG CAP PO SCH (20:11)
[2023-11-18 07:50] LABS: Hematocrit (blood only) 39.2 % (42.0-52.0); Hemoglobin 13.7 g/dl (14.0-18.0); Mean Corpuscular Hemoglobin 31.4 pg (25.0-34.0); Mean Corpuscular Hgb Conc 34.9 g/dL (32.0-36.0); Mean Corpuscular Volume 89.7 fL (80.0-100.0); Mean Platelet Volume 10.1 fL (9.4-12.4); Platelet Count 203 K/uL (130-400); RDW Coefficient of Variation 11.9 % (11.5-14.5); RDW Standard Deviation 38.5 fL (36.4-46.3); Red Blood Count 4.37 M/uL (4.70-6.10); White Blood Count 11.19 K/ul (4.8-10.8)
--- NOTE | 2023-11-18 07:53 | Urology Progress Note ---
Date of Service November 18, 2023 Assessment & Plan (1) Bilateral ureteral calculi: (2) Hydronephrosis: Plan - Patient admitted for bilateral obstructing stones - POD#1 s/p cystoscopy and bilateral ureteral stent placement - Doing well, progressing as expected - Afebrile with stable vitals - Lab work reviewed - creatinine 1.15, WBC 11.19 - Tolerating bilateral ureteral stent with minimal bother - Okay to d/c from perspective when medically stable - Recommend collect urine culture prior to discharge for preop planning, order placed - Recommend d/c with Tamsulosin, prn Pyridium and prn pain medication for stent management - Expected clinical course reviewed, all questions answered - Will arrange outpatient follow-up with our service for definitive stone treatment Admission and Anticipated Discharge Date Admission Date: November 17, 2023 Subjective Patient seen and examined at bedside this morning Subjectively doing well Occasional mild flank discomfort, tolerable Voiding spontaneously Patient denies nausea, vomiting, fever or chills Review of Systems Constitutional: as per Subjective / HPI Gastrointestinal: as per Subjective / HPI Genitourinary: + as per Subjective / HPI Physical Exam Constitutional: well developed and well nourished; no acute distress Respiratory: normal respiratory effort; no respiratory distress and no labored breathing Gastrointestinal (Abdomen): Inspection/Auscultation: abdomen normal to inspection Musculoskeletal: Head/Neck/Chest: normocephalic Neurologic: moves all extremities and awake Psychiatric: Orientation: alert and oriented x 3 Results & Data Vital Signs (Past 12 Hours) Vital Signs Temp Pulse Pulse Resp BP Pulse Ox O2 Del Method 11/18/23 07:29 36.7 C 76 20 135/80 97 Room Air 11/18/23 03:30 36.9 C 85 16 139/80 98 Room Air 11/17/23 22:35 36.6 C 77 18 148/78 H 96 Room Air PG Care Time/CCT Total # of Minutes Spent Total Time Spent with Patient: Total time spent is greater than 50% in coordination of care (as documented) at patient's floor/unit and/or counseling patient: Coding Level of Care Code 90593 SUB INP/OBS CARE 06/24MIN Diagnoses Bilateral ureteral calculi N20.1 Hydronephrosis N13.2 Hydronephrosis type: with ureteral calculous obstruction (2) Hydronephrosis Hydronephrosis type: with ureteral calculous obstruction Qualified Code(s): N13.2 - Hydronephrosis with renal and ureteral calculous obstruction
[2023-11-18 08:15] LABS: Anion Gap 6 (3-11); Blood Urea Nitrogen 23 mg/dl (6-23); Calcium 8.9 mg/dl (8.6-10.3); Carbon Dioxide 25 mmol/L (21-32); Chloride 107 mmol/L (98-107); Creatinine Clr Calc Pharmacy 88.2 ml/min; Est GFR (African American) 83.7 ml/min; Est GFR (Non-African American) 72.3 ml/min; Glucose 137 mg/dl (70-99(Fasting)); Sodium 138 mmol/L (136-145)
[2023-11-18 09:07] LABS: Estimated Average Glucose 108 mg/dl; Hemoglobin A1C 5.4 % (4.5-5.6)
--- NOTE | 2023-11-18 12:43 | Discharge Summary ---
Date of Service November 18, 2023 Admission HPI Per Admitting Provider This is a 53-year-old male who has prior history of nephrolithiasis who presents to ED secondary to acute onset left-sided flank pain that began when he awoke this morning. Symptoms started approximately 5:00. Pain was located in the left flank, described as dull and nonradiating. It was associated with nausea, dry heaves and diaphoresis. He does have a prior history approximately 25 years ago of a kidney stone. He denies any hematuria, dysuria, Increased urgency or frequency, fever, chills, chest pain, shortness of breath or URI symptoms. He was on his way to work when symptoms became abruptly worse and therefore presented to ED. In ED CT abdomen pelvis revealed a 3 mm obstructing calculus at the left vesicular ureteral junction with mild left hydroureteronephrosis and a 4 mm obstructing calculus just above the right vesicular ureteral junction and a 4 mm obstructing calculus at the right ureteropelvic junction. He was seen and evaluated by urology and due to obstructive uropathy underwent cystoscopy with bilateral ureteral stent placement by Dr. Chance. He tolerated the procedure well and was seen and evaluated in PACU. He is hemodynamically stable postoperatively and will be admitted to [facility] for postoperative monitoring Admission Exam Per Admitting Provider General Appearance:Moderately built and nourished, no apparent distress Head: normocephalic, Atraumatic Eyes: normal inspection, EOMI Neck: supple, Trachea midline Respiratory/Chest: Normal breath sounds, CTA, No accessory muscle use Cardiovascular: S1, S2, No murmur Abdomen/GI:Soft, Non tender, Bowel sounds present Extremities/Musculoskeletal:normal inspection, no edema Neurologic/Psych:AAOX3, grossly no focal neurological deficits Skin: normal color, warm Principal Diagnosis Bilateral ureteral stones, obstructive uropathy Discharge Exam General: WD/WN, vitals as above, NAD, sitting up in chair at bedside, pleasant, conversing appropriately. A+Ox3, euthymic affect. HEENT: Normocephalic, atraumatic. Normal inspection, PERRL, conjunctivae normal, anicteric sclerae. External ear and nose normal, oropharynx normal. Respiratory: Normal respiratory effort, lungs clear to auscultation, no wheeze, rales, rhonchi. No accessory muscle use. Cardiovascular: Regular rate, rhythm, no murmur, normal peripheral pulses, no BLE edema. Vessels: No JVD. Abdomen/GI: Normal bowel sounds, soft, nontender, no hepatosplenomegaly. Extremities/Musculoskeletal: No cyanosis or clubbing, extremities motor strength 5/5, moves all extremities. Neurologic: PERRL, EOMI, accommodation nl, no face palsy, no dysarthria, CN's II-XI not formally tested but appear intact bilaterally. Skin: No rashes, normal color, warm/dry. Discharge Data Allergies Allergy/AdvReac Type Severity Reaction Status Date / Time No Known Allergies Allergy Unverified 11/17/23 11:59 Consultations 11/17/23 07:30 Consult Urology Stat 11/17/23 08:15 ED Decision to Admit Stat Procedures Performed Operation Date: 11/17/23 11:20 Actual Procedures p Cystoscopy, Retograde Pyelogram, Bilateral Ureteral Stent Placement(Bilateral) - Hari Chance MD Ordered Studies 11/17/23 [place] retrograde includes kub Routine 11/17/23 05:30 CT abd pelvis wo con Stat Hospital Course (1) Bilateral ureteral calculi: (2) Hydronephrosis: Ryann Ribeiro is a 53-year-old male with prior history of nephrolithiasis who presented to ED 2/2 acute onset left-sided flank pain and was found to have bilateral ureteral calculi. B/L Ureteral Calculi Obstructive Uropathy CT of abdomen/pelvis in the ED revealed a 3mm obstructing calculus at the L vesicoureteral junction causing mild L-sided hydronephrosis, a 4mm obstructing calculus just above the R vesicoureteral junction and a 4mm obstructing calculus at the R ureteropelvic junction causing [id number] R-sided hydronephrosis. There were also additional nonobstructing calculi seen within both kidneys. Patient was ultimately admitted for bilateral obstructing ureteral stones. He underwent cystoscopy and bilateral ureteral stent placement with Dr. Chance on 11/17/23. He was observed overnight without any acute changes or concerns, pain was well controlled. UA was negative, patient remained afebrile. Urine culture i s pending at discharge - suspect this will more than likely be negative. He is doing very well at time of discharge. States he has some burning with urination, but otherwise has no complaints. He is being discharged with ibuprofen as needed for pain, daily tamsulosin to help assist with stone passage and phenazopyridine as needed for urinary pain. Patient is to follow-up with the [facility] in the outpatient setting after being discharged. Disposition: Will be discharging patient to home today (11/17). PCP: Located in [place], [place] --> Patient unsure of the provider's name. Patient seen in collaboration with Dr. Malhotra. Please see addendum. I spent a total of 45 minutes coordinating, documenting, and providing care for this patient excluding time spent in the performance of separately billed services. This included personally reviewing all current laboratories and imaging studies, medical reconciliation, outpatient chart review and discussion with specialists. This chart was completed in part utilizing Speech Voice Recognition Software. Grammatical errors, random word insertions, pronoun errors, and incomplete sentences are an occasional consequence of this system due to software limitations, ambient noise, and hardware issues. Any formal questions or concerns about the content, text, or information contained within the body of this dictation should be directly addressed to the provider for clarification. Home Health Attestation I certify that this patient is under my care and that I, or a physicians research assistant working with me, had a face to-face encounter that meets the home health [id number] encounter requirements with this patient. The encounter with the patient was in whole, or in part, for the following medical condition, which is the primary reason for home health care (list medical condition): I certify that, based on my findings, the following services are medically necessary home health services: My clinical findings support the need for the above services because: Further, I certify that my clinical findings support that this patient is homebound (i.e. absences from home require considerable and taxing effort and are for medical reasons or faith services or infrequently or of short duration when for other reasons) because: Certification for Home Health Services: Based on the above findings, I certify that this patient is confined to the home and needs intermittent shelter care, physical therapy and/or speech therapy or continues to need occupational therapy. The patient is under my care, and I have initiated the establishment of the plan of care. This patient will be followed by a physician who will periodically review the plan of care. Total Time Total Time Spent Total Time Spent (In Minutes): 45 Discharge Plan Discharge Items Patient Disposition: Home - Self-Care Reason For Visit: KIDNEY STONE Discharge Diagnosis: Bilateral ureteral stones s/p bilateral ureteral stent placement Activity: Resume your previous activity Non-emergency contact: Primary Care Provider Call non-emergency contact if: you have any medication questions Follow-up/Referrals: Mona Frazier CRNP [Nurse Practitioner] - (The Urology office will contact you for a follow up appointment.) PCP,NO [Primary Care Provider] - Diet: Regular Fluids: 2000ml (8 cups) Addtl Attending Provider Instructions: You were admitted to the hospital for bilateral ureteral stones (AKA kidney stones). You underwent a procedure with Dr. Chance to place stents in both of your ureters. Those stents were placed to help assist with passing both kidney stones. You are being prescribed ibuprofen for pain. You can take 800mg of ibuprofen by mouth every 8 hours as needed for pain. You are being prescribed tamsulosin. This medication is used to help pass kidney stones. Please take one 0.4mg tamsulosin capsule by mouth every night, starting today (11/17). You are being prescribed phenazopyridine [Pyridium] to help with the burning sensation during urination. Please take one 100mg tablet by mouth up to three times a day for the next 2 days as needed for pain with urination. You will be contacted by [facility]'s Urology Office following discharge to schedule a routine follow-up appointment. You have a urine culture pending at the time of discharge. Urology will be able to discuss these results (once available) with you at your appointment. If you have any questions or concerns, please feel free to reach out to the main line here at [facility]: It was a pleasure taking care of you. Pending Studies at Discharge: Yes Studies:: Urine culture Stand-Alone Forms: My [facility]icher, Smoking Cessation Medications and DC Order Prescriptions: New tamsulosin 0.4 mg Capsule 0.4 mg PO HS Qty: 30 0RF phenazopyridine [Pyridium] 100 mg Tablet 100 mg PO TID PRN (Reason: pain) Qty: 6 0RF ibuprofen 800 mg tablet 800 mg PO Q8H PRN (Reason: pain) Qty: 20 0RF Discharge Orders: Discharge Order (Routine); Ordered 11/18/23 Ordered By: Marcy Zavala/Other Patient Handouts: Understanding Kidney Stones, Preventing Kidney Stones Admission Data Admit Date/Time: 11/17/23 08:18 Attending Provider: Tim Malhotra Admit Provider: Juan R Schofield Primary Care Provider: PCP,NO Other Providers: Hari Chance; Juan R Schofield Other Interventions: Discharge Summary Assessment (RN) Last Done: 11/18/23 07:42 Supervising Physician Co-Signing Physician Notes Patient seen and examined independently. Discussed with above provider. Bilateral ureteral stone status post cystoscopy with stent placement. Pain well-controlled; patient discharged home as per urologist recommendation on tamsulosin, Pyridium and pain medication. I have reviewed the advanced practitioner's documentation, and I agree with, and take responsibility for the plan of care I spent a total of 25 minutes coordinating, documenting, and providing care for this patient excluding time spent in the performance of separately billed services. All of the aforementioned completed while collaborating with the assigned advanced practitioner for a full treatment plan
== END 2023-11-18 13:45 | disposition home or self-care (01) | DRG 661 ==
LOC: ED 05:29 → 3E 08:11 → PACUINP 08:18 → SUATTDRO 08:18 → 3E 13:08
DX: N13.2 Hydronephrosis with renal and ureteral calculous obstruction